=== PATIENT | male | born 1970 | race Asian ===

== ENCOUNTER 2024-02-05 07:48 | Day surgery (SDC) | payer BC ==
[2024-02-02 12:07] VITALS: BMI 28.3
[2024-02-05] MEDS ORDERED: PROPOFOL 160 ML ONE (07:52)
[2024-02-05 07:59] VITALS: RESP 18
[2024-02-05 08:48] VITALS: PULSE 58; TEMP 97.4
[2024-02-05 10:03] VITALS: BP 100/55
== END 2024-02-05 10:00 | disposition home or self-care (01) ==
LOC: FASU-ENDO 07:48
PROVIDERS: ATTEND Internal Medicine Gastroenterology
PROC: 0DJD8ZZ Inspection of Lower Intestinal Tract, Via Natural or Artificial Opening Endoscopic (ICD-10-PCS; principal; 2024-02-05 08:20)
DX: Z12.11 Encounter for screening for malignant neoplasm of colon (principal); Z86.010 Personal history of colon polyps